=== PATIENT | female | born 1970 | race Caucasian/White ===

== ENCOUNTER 2021-09-02 11:54 | Inpatient (IN) ==
[2021-09-02] MEDS ORDERED: Ketorolac 30 MG/ML VIAL IVP ONE (13:28)
[2021-09-02] MEDS ORDERED: 0.9 % Sodium Chloride 1,000 ML IVC ONE (13:28)
[2021-09-02] MEDS ORDERED: Isovue-370 500 ML BOTTLE IVP ONE (13:30)
[2021-09-02] MEDS ORDERED: Cefepime HCl 2,000 MG in Water for inj. (sterile) 10 ML IVP STA (13:34)
[2021-09-02] MEDS ORDERED: *HR* FentaNYL (PF) 100 MCG/2 ML VIAL IVP ONE ×2 (13:44→16:51)
[2021-09-02 13:55] LABS: Basophils # 0.1 K/mcL (0.0-0.2); Basophils % 0.4 %; Eosinophils # 0.3 K/mcL (0.0-0.6); Eosinophils % 1.4 %; Hematocrit 43.1 % (35.3-44.9); Hemoglobin 13.8 g/dL (11.5-15.4); Immature Granulocytes % 0.5 % (0-4); Lymphocytes # 3.2 K/mcL (0.6-4.6); Lymphocytes % 16.6 %; Mean Corpuscular Hemoglobin 29.7 pg (28.0-33.3); Mean Corpuscular Volume 92.9 fL (83.0-100.0); Mean Platelet Volume 8.5 fL (9.4-12.4); Monocytes # 2.2 K/mcL (0.0-1.3); Monocytes % 11.4 %; Neutrophils # 13.5 K/mcL (1.6-8.9); Platelet Count 540 K/mcL (140-400); Red Blood Count 4.64 M/mcL (3.82-4.97); Red Cell Distribution Width 13.2 % (11.5-14.5); Segmented Neutrophils % 69.7 %; White Blood Count 19.4 K/mcL (4.3-11.1)
[2021-09-02 14:02] LABS: INR 1.2; Prothrombin Time 13.2 Seconds (9.4-12.1)
[2021-09-02 14:04] LABS: Activated Partial Thrombo Time 34.6 Seconds (26.0-36.0)
[2021-09-02 14:08] LABS: Bacteria,Urine Few per hpf (None-Few); Bilirubin,Urine Negative (Negative); Blood,Urine Trace (Negative); Clarity,Urine Clear (Clear); Color,Urine Light-Yellow (Yellow); Glucose,Urine (UA) Normal (Normal); Hyaline Casts,Urine Few per lpf (None Seen); Ketones,Urine Negative (Negative); Leukocyte Esterase,Urine Large (Negative); Mucus,Urine Few per lpf (None-Few); Nitrite,Urine Negative (Negative); Protein,Urine Trace mg/dL (Neg-Trace); RBC,Urine 0-3 per hpf (0-3); Specific Gravity,Urine 1.015 (1.010-1.025); Squamous Epithelial Cell,Urine Moderate per hpf (None-Few); Urobilinogen,Urine Normal (Normal); WBC,Urine 30-50 per hpf (0-3)
[2021-09-02 14:16] LABS: Alanine Aminotransferase 81 Units/L (7-52); Albumin/Globulin Ratio 1.3 (1.1-2.2); Alkaline Phosphatase 165 Units/L (34-104); Amylase 24 Units/L (29-103); Aspartate Amino Transferase 46 Units/L (13-39); BUN/Creatinine Ratio 9 (6-26); Bilirubin,Direct 0.1 mg/dL (0.0-0.2); Bilirubin,Indirect 0.3 mg/dL (0.0-1.0); Bilirubin,Total 0.4 mg/dL (0.3-1.0); Blood Urea Nitrogen 7 mg/dL (6-20); C-Reactive Protein 233 mg/L (Less than 10); Calcium 9.4 mg/dL (8.6-10.3); Carbon Dioxide 26 mEq/L (23-29); Chloride 101 mEq/L (98-107); Globulin 3.2 g/dL (2.4-3.5); Glucose 89 mg/dL (70-105); Lipase 14 Units/L (11-82); Osmolality,Calculated 285 (280-300); Potassium 3.5 mEq/L (3.5-5.1); Sodium 139 mEq/L (136-145); Total Protein 7.2 g/dL (6.4-8.9); eGFR For African Americans > 60 (> 60); eGFR For Non-African Americans > 60 (> 60)
[2021-09-02] MEDS ORDERED: Ondansetron 4 MG/2 ML VIAL IVP PRN ×3 (15:34→21:55)
[2021-09-02] MEDS ORDERED: Mag Hydrox/Al Hydrox/Simeth 30 ML UDC PO PRN ×2 (15:34→21:55)
[2021-09-02] MEDS ORDERED: Naloxone 0.4 MG/ML INJ IVP PRN ×2 (15:34→21:55)
[2021-09-02] MEDS ORDERED: Melatonin 3 MG TABLET PO PRN ×2 (15:34→21:55)
[2021-09-02] MEDS ORDERED: *HR* HYDROcodone/Acet 5/325 mg TABLET PO PRN (15:38)
[2021-09-02] MEDS ORDERED: Acetaminophen 325 MG TABLET PO PRN ×2 (15:40→21:55)
[2021-09-02] MEDS ORDERED: Ketorolac 30 MG/ML VIAL IVP PRN (15:42)
[2021-09-02] MEDS ORDERED: 0.9 % Sodium Chloride w KCl 20 MEQ/1,000 ML MLS IVC SCH (15:45)
[2021-09-02] MEDS ORDERED: Cefepime HCl 2,000 MG in 0.9 % Sodium Chloride Mini Bag 100 ML IVPB SCH (18:00)
[2021-09-02] MEDS ORDERED: PARoxetine 20 MG TABLET PO SCH (18:00)
[2021-09-02] MEDS ORDERED: Lidocaine -MPF 2% 5 ML VIAL ONE (19:11)
[2021-09-02] MEDS ORDERED: *HR* Propofol 200 MG/20 ML VIAL IVP ONE (19:11)
[2021-09-02] MEDS ORDERED: *HR* Midazolam HCl 2 MG/2 ML VIAL ONE (19:11)
[2021-09-02] MEDS ORDERED: Ondansetron 4 MG/2 ML VIAL ONE (19:11)
[2021-09-02] MEDS ORDERED: *HR* FentaNYL (PF) 100 MCG/2 ML VIAL ONE (19:11)
[2021-09-02] MEDS ORDERED: *HR* Meperidine 25 MG/ML SYRINGE IVP PRN (19:21)
[2021-09-02] MEDS ORDERED: *HR* HYDROmorphone PF 0.5 MG/0.5 ML SYRINGE IVP PRN (19:21)
[2021-09-02] MEDS ORDERED: Albuterol 2.5 MG/3 ML NEBULIZER IH PRN (19:21)
[2021-09-02] MEDS ORDERED: Ketamine HCL *QUVA* 50mg (1mL) SYRINGE ONE (19:22)
[2021-09-02] MEDS ORDERED: Acetaminophen IV 1,000 MG/100 ML BAG IVPB ONE (19:56)
[2021-09-02] MEDS ORDERED: *HR* HYDROMORPHONE 2 MG/ML VIAL ONE (20:19)
[2021-09-02] MEDS ORDERED: BuPROPion SR (12 HR) 100 MG TABLET PO SCH (21:00)
[2021-09-02] MEDS ORDERED: ALPRAZolam 1 MG TABLET PO SCH (21:00)
[2021-09-02] MEDS ORDERED: Ringers Solution, Lactated 1,000 ML ONE (21:24)
[2021-09-02] MEDS: *HR* HYDROcodone/Acet 5/325 mg TABLET PO PRN (22:49)
[2021-09-02] MEDS: 0.9 % Sodium Chloride w KCl 20 MEQ/1,000 ML MLS IVC SCH (22:50)
[2021-09-03] MEDS: Vancomycin 1,250 MG/262.5 ML IV.SOLN IVPB SCH ×3 (01:56→15:36)
[2021-09-03] MEDS ORDERED: Vancomycin 1,250 MG/262.5 ML IV.SOLN IVPB SCH (02:00)
[2021-09-03 03:00] LABS: Basophils % 0.2 %; Immature Granulocytes % 0.6 % (0-4); Mean Platelet Volume 8.7 fL (9.4-12.4); Monocytes % 3.3 %; Red Cell Distribution Width 13.2 % (11.5-14.5)
[2021-09-03 03:02] LABS: Hematocrit 38.5 % (35.3-44.9); Hemoglobin 12.3 g/dL (11.5-15.4); Lymphocytes # 1.8 K/mcL (0.6-4.6); Lymphocytes % 6.8 %; Mean Corpuscular HGB Conc 31.9 g/dL (31.6-35.5); Mean Corpuscular Volume 93.9 fL (83.0-100.0); Monocytes # 0.9 K/mcL (0.0-1.3); Neutrophils # 23.7 K/mcL (1.6-8.9); Platelet Count 490 K/mcL (140-400); Segmented Neutrophils % 89.1 %; White Blood Count 26.6 K/mcL (4.3-11.1)
[2021-09-03 03:21] LABS: BUN/Creatinine Ratio 11 (6-26); Blood Urea Nitrogen 7 mg/dL (6-20); Calcium 8.8 mg/dL (8.6-10.3); Carbon Dioxide 25 mEq/L (23-29); Chloride 109 mEq/L (98-107); Glucose 140 mg/dL (70-105); Osmolality,Calculated 284 (280-300); Potassium 4.3 mEq/L (3.5-5.1); Sodium 137 mEq/L (136-145); eGFR For African Americans > 60 (> 60); eGFR For Non-African Americans > 60 (> 60)
[2021-09-03 03:23] LABS: Basophils # 0.1 K/mcL (0.0-0.2)
[2021-09-03] MEDS ORDERED: Vancomycin (wt based) 1,000 MG VIAL IVPB SCH (04:00)
[2021-09-03 04:16] LABS: Platelet Estimate Increased (Normal)
[2021-09-03] MEDS: *HR* HYDROcodone/Acet 5/325 mg TABLET PO PRN ×4 (04:30→18:57)
[2021-09-03] MEDS: Cefepime HCl 2,000 MG in 0.9 % Sodium Chloride Mini Bag 100 ML IVPB SCH ×2 (06:40→18:24)
[2021-09-03] MEDS: BuPROPion SR (12 HR) 100 MG TABLET PO SCH ×2 (08:36→21:58)
[2021-09-03] MEDS: Loratadine 10 MG TABLET PO SCH (08:36)
[2021-09-03] MEDS: Cyanocobalamin (B-12) 1,000 MCG TABLET PO SCH (08:36)
[2021-09-03] MEDS: Multivit/Ca/Min/Fe/FA 1 TAB TABLET PO SCH (08:36)
[2021-09-03] MEDS ORDERED: Loratadine 10 MG TABLET PO SCH (09:00)
[2021-09-03] MEDS ORDERED: Multivit/Ca/Min/Fe/FA 1 TAB TABLET PO SCH (09:00)
[2021-09-03] MEDS ORDERED: Cyanocobalamin (B-12) 1,000 MCG TABLET PO SCH (09:00)
[2021-09-03] MEDS: Ketorolac 30 MG/ML VIAL IVP PRN (17:35)
[2021-09-03] MEDS: PARoxetine 20 MG TABLET PO SCH (18:25)
[2021-09-03] MEDS: ALPRAZolam 1 MG TABLET PO SCH (21:58)
[2021-09-04] MEDS: *HR* HYDROcodone/Acet 5/325 mg TABLET PO PRN ×4 (01:12→18:18)
[2021-09-04 01:48] LABS: Basophils # 0.1 K/mcL (0.0-0.2); Basophils % 0.3 %; Eosinophils # 0.1 K/mcL (0.0-0.6); Eosinophils % 0.6 %; Hematocrit 38.2 % (35.3-44.9); Hemoglobin 12.1 g/dL (11.5-15.4); Immature Granulocytes % 0.5 % (0-4); Lymphocytes # 4.6 K/mcL (0.6-4.6); Lymphocytes % 23.6 %; Mean Corpuscular HGB Conc 31.7 g/dL (31.6-35.5); Mean Corpuscular Hemoglobin 29.5 pg (28.0-33.3); Mean Corpuscular Volume 93.2 fL (83.0-100.0); Mean Platelet Volume 8.8 fL (9.4-12.4); Monocytes # 1.4 K/mcL (0.0-1.3); Monocytes % 7.4 %; Neutrophils # 13.1 K/mcL (1.6-8.9); Platelet Count 528 K/mcL (140-400); Red Cell Distribution Width 13.1 % (11.5-14.5); Segmented Neutrophils % 67.6 %; White Blood Count 19.4 K/mcL (4.3-11.1)
[2021-09-04 02:05] LABS: Alanine Aminotransferase 71 Units/L (7-52); Albumin 3.3 g/dL (3.5-5.7); Albumin/Globulin Ratio 1.3 (1.1-2.2); Alkaline Phosphatase 145 Units/L (34-104); Aspartate Amino Transferase 33 Units/L (13-39); BUN/Creatinine Ratio 17 (6-26); Bilirubin,Total 0.2 mg/dL (0.3-1.0); Blood Urea Nitrogen 14 mg/dL (6-20); Calcium 8.9 mg/dL (8.6-10.3); Carbon Dioxide 26 mEq/L (23-29); Chloride 108 mEq/L (98-107); Globulin 2.6 g/dL (2.4-3.5); Glucose 108 mg/dL (70-105); Osmolality,Calculated 287 (280-300); Potassium 3.6 mEq/L (3.5-5.1); Sodium 138 mEq/L (136-145); Total Protein 5.9 g/dL (6.4-8.9); eGFR For African Americans > 60 (> 60); eGFR For Non-African Americans > 60 (> 60)
[2021-09-04] MEDS: Vancomycin 1,500 MG/265 ML IV.SOLN IVPB SCH ×2 (03:54→16:14)
[2021-09-04] MEDS: Cefepime HCl 2,000 MG in 0.9 % Sodium Chloride Mini Bag 100 ML IVPB SCH ×2 (05:53→17:07)
[2021-09-04] MEDS: BuPROPion SR (12 HR) 100 MG TABLET PO SCH ×2 (08:53→21:18)
[2021-09-04] MEDS: Multivit/Ca/Min/Fe/FA 1 TAB TABLET PO SCH (08:53)
[2021-09-04] MEDS: Cyanocobalamin (B-12) 1,000 MCG TABLET PO SCH (08:53)
[2021-09-04] MEDS: Loratadine 10 MG TABLET PO SCH (08:53)
[2021-09-04] MEDS: Ketorolac 30 MG/ML VIAL IVP PRN ×2 (09:05→21:18)
[2021-09-04] MEDS: Vancomycin 1,250 MG/262.5 ML IV.SOLN IVPB SCH (14:15)
[2021-09-04] MEDS: PARoxetine 20 MG TABLET PO SCH (17:09)
[2021-09-04] MEDS: ALPRAZolam 1 MG TABLET PO SCH (21:17)
[2021-09-04] MEDS ORDERED: *HR* HYDROmorphone 2 MG/ML SYRINGE IVP ONE (22:33)
[2021-09-05] MEDS: 0.9 % Sodium Chloride w KCl 20 MEQ/1,000 ML MLS IVC SCH (00:41)
[2021-09-05] MEDS: Vancomycin 1,500 MG/265 ML IV.SOLN IVPB SCH ×2 (02:40→15:07)
[2021-09-05] MEDS: *HR* HYDROcodone/Acet 5/325 mg TABLET PO PRN ×2 (02:40→15:16)
[2021-09-05 03:44] LABS: Basophils # 0.1 K/mcL (0.0-0.2); Basophils % 0.5 %; Eosinophils # 0.5 K/mcL (0.0-0.6); Eosinophils % 3.6 %; Hematocrit 37.4 % (35.3-44.9); Hemoglobin 12.1 g/dL (11.5-15.4); Immature Granulocytes % 0.5 % (0-4); Lymphocytes % 34.1 %; Mean Corpuscular HGB Conc 32.4 g/dL (31.6-35.5); Mean Corpuscular Hemoglobin 30.4 pg (28.0-33.3); Mean Platelet Volume 8.8 fL (9.4-12.4); Monocytes # 1.2 K/mcL (0.0-1.3); Monocytes % 8.1 %; Neutrophils # 7.8 K/mcL (1.6-8.9); Platelet Count 572 K/mcL (140-400); Red Blood Count 3.98 M/mcL (3.82-4.97); Red Cell Distribution Width 13.1 % (11.5-14.5); Segmented Neutrophils % 53.2 %; White Blood Count 14.6 K/mcL (4.3-11.1)
[2021-09-05 04:04] LABS: Alanine Aminotransferase 70 Units/L (7-52); Albumin 3.3 g/dL (3.5-5.7); Albumin/Globulin Ratio 1.3 (1.1-2.2); Alkaline Phosphatase 124 Units/L (34-104); Aspartate Amino Transferase 33 Units/L (13-39); BUN/Creatinine Ratio 21 (6-26); Bilirubin,Total 0.2 mg/dL (0.3-1.0); Blood Urea Nitrogen 16 mg/dL (6-20); Calcium 8.5 mg/dL (8.6-10.3); Carbon Dioxide 24 mEq/L (23-29); Chloride 106 mEq/L (98-107); Globulin 2.6 g/dL (2.4-3.5); Glucose 93 mg/dL (70-105); Osmolality,Calculated 289 (280-300); Sodium 139 mEq/L (136-145); Total Protein 5.9 g/dL (6.4-8.9); eGFR For African Americans > 60 (> 60); eGFR For Non-African Americans > 60 (> 60)
[2021-09-05] MEDS: Cefepime HCl 2,000 MG in 0.9 % Sodium Chloride Mini Bag 100 ML IVPB SCH ×2 (05:07→17:51)
[2021-09-05] MEDS: Ketorolac 30 MG/ML VIAL IVP PRN ×2 (10:04→21:46)
[2021-09-05] MEDS: BuPROPion SR (12 HR) 100 MG TABLET PO SCH ×2 (10:05→20:10)
[2021-09-05] MEDS: Multivit/Ca/Min/Fe/FA 1 TAB TABLET PO SCH (10:05)
[2021-09-05] MEDS: Cyanocobalamin (B-12) 1,000 MCG TABLET PO SCH (10:05)
[2021-09-05] MEDS: Loratadine 10 MG TABLET PO SCH (10:05)
[2021-09-05] MEDS: PARoxetine 20 MG TABLET PO SCH (17:51)
[2021-09-05] MEDS: ALPRAZolam 1 MG TABLET PO SCH (20:10)
[2021-09-05] MEDS ORDERED: *HR* HYDROmorphone 2 MG/ML SYRINGE IVP ONE (20:18)
[2021-09-06 01:41] LABS: Basophils # 0.1 K/mcL (0.0-0.2); Basophils % 0.6 %; Eosinophils # 0.4 K/mcL (0.0-0.6); Eosinophils % 3.5 %; Hematocrit 41.5 % (35.3-44.9); Hemoglobin 13.3 g/dL (11.5-15.4); Immature Granulocytes % 0.5 % (0-4); Lymphocytes # 4.2 K/mcL (0.6-4.6); Lymphocytes % 33.8 %; Mean Corpuscular Hemoglobin 29.8 pg (28.0-33.3); Mean Platelet Volume 8.7 fL (9.4-12.4); Monocytes # 1.2 K/mcL (0.0-1.3); Monocytes % 9.9 %; Platelet Count 598 K/mcL (140-400); Red Blood Count 4.46 M/mcL (3.82-4.97); Red Cell Distribution Width 12.9 % (11.5-14.5); Segmented Neutrophils % 51.7 %; White Blood Count 12.5 K/mcL (4.3-11.1)
[2021-09-06 01:47] LABS: Neutrophils # 6.5 K/mcL (1.6-8.9)
[2021-09-06 02:02] LABS: Alanine Aminotransferase 59 Units/L (7-52); Albumin 3.6 g/dL (3.5-5.7); Albumin/Globulin Ratio 1.3 (1.1-2.2); Alkaline Phosphatase 122 Units/L (34-104); Aspartate Amino Transferase 24 Units/L (13-39); BUN/Creatinine Ratio 19 (6-26); Bilirubin,Total 0.3 mg/dL (0.3-1.0); Blood Urea Nitrogen 13 mg/dL (6-20); Calcium 8.9 mg/dL (8.6-10.3); Carbon Dioxide 24 mEq/L (23-29); Chloride 105 mEq/L (98-107); Globulin 2.7 g/dL (2.4-3.5); Glucose 87 mg/dL (70-105); Osmolality,Calculated 287 (280-300); Sodium 139 mEq/L (136-145); Total Protein 6.3 g/dL (6.4-8.9); eGFR For African Americans > 60 (> 60); eGFR For Non-African Americans > 60 (> 60)
[2021-09-06 02:24] LABS: Platelet Estimate Increased (Normal); Reactive Lymphocytes Present (Not Present)
[2021-09-06] MEDS: Vancomycin 1,500 MG/265 ML IV.SOLN IVPB SCH (02:30)
[2021-09-06] MEDS: Cefepime HCl 2,000 MG in 0.9 % Sodium Chloride Mini Bag 100 ML IVPB SCH (05:11)
[2021-09-06] MEDS: BuPROPion SR (12 HR) 100 MG TABLET PO SCH (08:09)
[2021-09-06] MEDS: *HR* HYDROcodone/Acet 5/325 mg TABLET PO PRN ×2 (08:09→12:12)
[2021-09-06] MEDS: Multivit/Ca/Min/Fe/FA 1 TAB TABLET PO SCH (08:09)
[2021-09-06] MEDS: Loratadine 10 MG TABLET PO SCH (08:10)
[2021-09-06] MEDS: Cyanocobalamin (B-12) 1,000 MCG TABLET PO SCH (08:10)
[2021-09-06 11:15] VITALS: BP 125/75; PULSE 90; TEMP 97.6; O2SAT 96
== END 2021-09-06 14:34 | disposition home health service (06) | DRG 872 ==
LOC: 3ANU 11:54 → EMEROOARM 11:54 → 3ANU 17:40 → SUATTDRO 18:26
PROVIDERS: ADMIT Internal Medicine; ATTEND Family Medicine